=== PATIENT | female | born 1990 | race Asian ===

== ENCOUNTER 2018-04-21 23:35 | Observation (INO) | payer MEDICAID ==
[~2018-04-21] VITALS: Ht 157.5 cm; Wt 66.7 kg
[2018-04-22 00:19] VITALS: BP 114/66
[2018-04-22] MEDS ORDERED: PNV11TAB PO (00:22)
[2018-04-22] MEDS ORDERED: IRON-24 PO (00:23)
== END 2018-04-22 03:25 | disposition home or self-care (01) ==
LOC: 4S 23:35
PROVIDERS: ADMIT Obstetrics & Gynecology; ATTEND Obstetrics & Gynecology
DX: O46.93 Antepartum hemorrhage, unspecified, third trimester (principal); O26.893 Other specified pregnancy related conditions, third trimester; M54.5 Low back pain; R10.30 Lower abdominal pain, unspecified; Z3A.35 35 weeks gestation of pregnancy
CPT/HCPCS: 59025; 76805; 80307 ×8; G0378